=== PATIENT | female | born 1980 | race African-American/Black ===

== ENCOUNTER 2022-04-08 19:21 | Emergency (ER) | payer SELFPAY ==
[~2022-04-08] VITALS: Ht 157.5 cm; Wt 81.8 kg
[2022-04-08 20:20] LABS: BASO % 0.4 % (0.0-1.0); EOS # 0.1 10^3/uL (0.0-0.5); EOS % 2.3 % (0.0-3.0); HEMATOCRIT 42.7 % (36.0-47.0); HEMOGLOBIN 13.9 g/dl (12.0-15.5); LYMPH # 2.2 10^3/uL (1.5-5.0); LYMPH % 42.3 % (24.0-44.0); MEAN CORPUSCULAR HEMOGLOBIN 25.5 pg (27.0-33.0); MEAN CORPUSCULAR HGB CONC 32.6 g/dl (32.0-36.5); MEAN CORPUSCULAR VOLUME 78.3 fl (80.0-96.0); MONO # 0.4 10^3/uL (0.0-0.8); MONO % 6.8 % (2.0-8.0); NEUTROPHILS # 2.5 10^3/uL (1.5-8.5); PLATELET COUNT, AUTOMATED 282 10^3/uL (150-450); RED BLOOD COUNT 5.45 10^6/uL (4.00-5.40); WHITE BLOOD COUNT 5.3 10^3/uL (4.0-10.0)
[2022-04-08 20:46] LABS: INR 0.94; PROTHROMBIN TIME 12.8 SECONDS (12.5-14.5)
[2022-04-08 20:57] LABS: ALBUMIN 3.9 GM/DL (3.2-5.2); ALT/SGPT 28 U/L (12-78); BILIRUBIN,DIRECT 0.1 MG/DL (0.0-0.2); BILIRUBIN,TOTAL 0.5 MG/DL (0.2-1.0); BLOOD UREA NITROGEN 15 MG/DL (7-18); CALCIUM LEVEL 9.2 MG/DL (8.5-10.1); CARBON DIOXIDE LEVEL 30 MEQ/L (21-32); CHLORIDE LEVEL 102 MEQ/L (98-107); CREATININE FOR GFR 0.92 MG/DL (0.55-1.30); GLOMERULAR FILTRATION RATE > 60.0 (>58); GLUCOSE, FASTING 99 MG/DL (70-100); LIPASE 119 U/L (73-393); POTASSIUM SERUM 3.4 MEQ/L (3.5-5.1); SODIUM LEVEL 136 MEQ/L (136-145); TOTAL PROTEIN 8.6 GM/DL (6.4-8.2)
[2022-04-08 21:01] LABS: CK-MB VALUE MASS < 1.0 NG/ML (<3.6); CPK CREATINE PHOSPHOKINASE 140 U/L (26-192); MB/CK RELATIVE INDEX 0.71 (< OR =4)
[2022-04-09 02:14] LABS: CK-MB VALUE MASS < 1.0 NG/ML (<3.6); CPK CREATINE PHOSPHOKINASE 146 U/L (26-192); MB/CK RELATIVE INDEX 0.68 (< OR =4)
[2022-04-09] MEDS ORDERED: ACETAMINOPHEN 500 MG TAB PO ONE (07:35)
[2022-04-09 08:08] LABS: HCG, SERUM QUALITATIVE NEGATIVE (NEGATIVE)
[2022-04-09 08:25] LABS: FREE T4 0.94 NG/DL (0.76-1.46); THYROID STIMULATING HORMONE 0.592 uIU/ML (0.358-3.740)
[2022-04-09] MEDS ORDERED: ISOVUE-370 76% 100ML VIAL As Ordered ONE (09:06)
[2022-04-09 10:17] LABS: MAGNESIUM LEVEL 2.4 MG/DL (1.8-2.4)
[2022-04-09] MEDS ORDERED: POTASSIUM CHLORIDE 10MEQ SR TABLET PO ONE (10:25)
[2022-04-09] MEDS ORDERED: OMEP40CA4 PO (10:32)
[2022-04-09 11:11] VITALS: BP 154/97
== END 2022-04-09 11:19 | disposition home or self-care (01) ==
LOC: M ED 19:21
DX: M79.606 Pain in leg, unspecified (principal); G62.9 Polyneuropathy, unspecified; K44.9 Diaphragmatic hernia without obstruction or gangrene; E87.6 Hypokalemia; R07.9 Chest pain, unspecified; I10 Essential (primary) hypertension; J45.909 Unspecified asthma, uncomplicated; F32.9 Major depressive disorder, single episode, unspecified
CPT/HCPCS: 71045; 71275; 80048; 80076; 82550; 82553; 83690; 83735; 84439; 84443; 84484; 84703; 85025; 85379; 85610; 86618; 87486; 87581; 87633; 87798; 93005; 93970; 93971; 99284; Q9967

== ENCOUNTER 2022-05-03 17:07 | Emergency (ER) | payer SELFPAY ==
[~2022-05-03 17:07] MED LIST: OMEP40CA4 PO
[2022-05-03] MEDS ORDERED: OSEL75CA PO ×2 (18:17→19:02)
[2022-05-03] MEDS ORDERED: OSELTAMIVIR PHOSPHATE 75 MG CAP (TAMIFLU) PO ONE (18:20)
== END 2022-05-03 19:28 | disposition home or self-care (01) ==
LOC: M ED 17:07
DX: J10.1 Influenza due to other identified influenza virus with other respiratory manifestations (principal); R05.9 Cough, unspecified